=== PATIENT | female | born 1990 | race Caucasian/White ===

== ENCOUNTER 2021-05-03 21:29 | Emergency (ER) | payer SELFPAY ==
[~2021-05-03] VITALS: Ht 167.6 cm; Wt 67.2 kg
[2021-05-03] MEDS ORDERED: NS 1,000 ML IV ONE (21:35)
[2021-05-03] MEDS ORDERED: ISOVUE-370 76% 100ML VIAL As Ordered ONE (21:39)
[2021-05-03 21:52] LABS: BASO % 0.2 % (0.0-1.0); EOS # 0.1 10^3/uL (0.0-0.5); EOS % 0.7 % (0.0-3.0); HEMOGLOBIN 13.7 g/dl (12.0-15.5); LYMPH # 2.6 10^3/uL (1.5-5.0); MEAN CORPUSCULAR HGB CONC 33.4 g/dl (32.0-36.5); MEAN CORPUSCULAR VOLUME 86.9 fl (80.0-96.0); MONO # 0.9 10^3/uL (0.0-0.8); NEUTROPHILS # 14.5 10^3/uL (1.5-8.5); NEUTROPHILS % 79.4 % (36.0-66.0); PLATELET COUNT, AUTOMATED 338 10^3/uL (150-450); RED BLOOD COUNT 4.72 10^6/uL (4.00-5.40); WHITE BLOOD COUNT 18.3 10^3/uL (4.0-10.0)
[2021-05-03 22:03] LABS: INR 1.01; PARTIAL THROMBOPLASTIN TIME 28.4 SECONDS (25.9-37.0); PROTHROMBIN TIME 13.7 SECONDS (12.7-14.5)
[2021-05-03 22:13] LABS: ABG BASE EXCESS -2.3 (-2.0-2.0); ABG HCO3 22.3 MEQ/L (22.0-26.0); ABG O2 SATURATION 98.9 % (95.0-99.0); ABG PARTIAL PRESSURE CO2 38.1 mmHg (35.0-45.0); ABG PARTIAL PRESSURE O2 136.8 mmHg (75.0-100.0); ABG STANDARD HCO3 22.6 MEQ/L (22.0-26.0); ABG TOTAL CO2 23.5 MEQ/L (22.0-29.0); ABG pH (ARTERIAL) 7.386 UNITS (7.350-7.450)
[2021-05-03 22:19] LABS: HCG, SERUM QUALITATIVE NEGATIVE (NEGATIVE)
[2021-05-03 22:22] LABS: ALBUMIN 3.8 GM/DL (3.2-5.2); ALT/SGPT 38 U/L (12-78); AMYLASE 89 U/L (25-115); BILIRUBIN,DIRECT < 0.1 MG/DL (0.0-0.2); BILIRUBIN,TOTAL 0.4 MG/DL (0.2-1.0); BLOOD UREA NITROGEN 12 MG/DL (7-18); CALCIUM LEVEL 8.6 MG/DL (8.5-10.1); CARBON DIOXIDE LEVEL 25 MEQ/L (21-32); CHLORIDE LEVEL 109 MEQ/L (98-107); CK-MB VALUE MASS 8.1 NG/ML (<3.6); CPK CREATINE PHOSPHOKINASE 310 U/L (26-192); CREATININE FOR GFR 0.72 MG/DL (0.55-1.30); ETHYL ALCOHOL (ETHANOL) 0.003 % (0.000-0.010); GLOMERULAR FILTRATION RATE > 60.0 (>60); GLUCOSE, FASTING 114 MG/DL (70-100); LIPASE 132 U/L (73-393); MB/CK RELATIVE INDEX 2.61 (< OR =4); POTASSIUM SERUM 3.7 MEQ/L (3.5-5.1); SODIUM LEVEL 141 MEQ/L (136-145); TOTAL PROTEIN 6.7 GM/DL (6.4-8.2); TROPONIN I < 0.02 NG/ML (< 0.10)
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
[2021-05-03] MEDS ORDERED: ONDANSETRON 4MG/2ML VIAL IV ONE (22:35)
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
[2021-05-03] MEDS ORDERED: INFANRIX VACCINE SYRINGE (DIPHTH/TET/ACEL PERTUS PEDIATRIC) (CPT 90700) IM ONE (22:40)
[2021-05-03] MEDS ORDERED: ceFAZolin SOD 2 GM in IV 1 EA IV ONE (22:40)
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
[2021-05-04 00:09] LABS: RSV AMPLIFICATION NEGATIVE (NEGATIVE)
[2021-05-04 00:30] VITALS: BP 118/69
== END 2021-05-04 00:52 | disposition short-term general hospital (02) ==
LOC: M ED 21:29
DX: S02.0XXA Fracture of vault of skull, initial encounter for closed fracture (principal); S12.691A Other nondisplaced fracture of seventh cervical vertebra, initial encounter for closed fracture; S06.5X0A Traumatic subdural hemorrhage without loss of consciousness, initial encounter; S06.6X0A Traumatic subarachnoid hemorrhage without loss of consciousness, initial encounter; V80 Animal-rider or occupant of animal-drawn vehicle injured in transport accident; Y92.410 Unspecified street and highway as the place of occurrence of the external cause; J98.2 Interstitial emphysema
CPT/HCPCS: 70450; 71045; 71260; 72125; 74177; 80048; 80076; 82077; 82150; 82550; 82553; 82803; 83605; 83690; 84484; 84703; 85025; 85610; 85730; 86850; 86900; 86901; 87631; 90471; 90715; 93041; 96361; 96365; 96375; 99285; J0690; J2405; Q9967